=== PATIENT | male | born 2000 | race Caucasian/White ===

== ENCOUNTER 2021-03-02 17:26 | Emergency (ER) | payer BC ==
[~2021-03-02] VITALS: Ht 175.3 cm; Wt 56.8 kg
[2021-03-02 17:32] VITALS: TEMP 97.8
[2021-03-02 18:10] VITALS: BP 128/66; PULSE 72
== END 2021-03-02 18:16 | disposition home or self-care (01) ==
LOC: COL.ER 17:26
DX: N45.1 Epididymitis (principal)

== ENCOUNTER → 2021-03-03 | Outpatient (CLI) | payer BC | LOC: COL.RAD 07:50 | DX: I86.1 Scrotal varices (principal); N43.3 Hydrocele, unspecified ==

== ENCOUNTER 2022-06-13 17:55 | Emergency (ER) | payer BC ==
[~2022-06-13] VITALS: Ht 175.3 cm; Wt 65.5 kg
[2022-06-13 18:01] VITALS: TEMP 98.8
[2022-06-13] MEDS ORDERED: ZOLOFT 50MG50 MG PO (18:05)
[2022-06-13] MEDS ORDERED: DESYREL 50MG50 MG PO (18:05)
[2022-06-13] MEDS ORDERED: LATUDA20 MG PO (18:05)
[2022-06-13 19:24] LABS: BASO # 0.1 K/mm3 (0.0-0.2); BASO % 0.5 % (0.0-2.0); EOS # 0.1 K/mm3 (0.0-0.7); EOS % 1.2 % (0.0-4.0); GRAN # 6.1 K/mm3 (1.4-6.5); GRAN % 64.8 % (42.2-75.2); HEMATOCRIT 44.7 % (36.0-47.0); HEMOGLOBIN 15.3 g/dl (12.5-16.1); LYMPH # 2.1 K/mm3 (1.2-3.4); LYMPH % 21.8 % (20.0-51.0); MEAN CELL VOLUME 83 fl (80.0-95.0); MEAN CORPUSCULAR HEMOGLOBIN 28 pg (26-32); MEAN CORPUSCULAR HGB CONC 34 g/dl (33.0-37.0); MONO # 1.1 K/mm3 (0.1-0.6); MONO % 11.5 % (1.7-9.3); PLATELET COUNT 284 K/mm3 (130-400); RED BLOOD COUNT 5.38 M/mm3 (4.20-5.60); REDCELL DISTRIBUTION WIDTH-CV 12.6 % (11.5-14.5)
[2022-06-13] MEDS ORDERED: VOLTAREN 75 DR75 MG PO (20:10)
[2022-06-13 20:40] VITALS: BP 112/71; PULSE 91
== END 2022-06-13 20:42 | disposition home or self-care (01) ==
LOC: COL.ER 17:55
PROVIDERS: Family Medicine
DX: R07.89 Other chest pain (principal); Z20.822 Contact with and (suspected) exposure to COVID-19
CPT/HCPCS: J1885

== ENCOUNTER 2023-11-14 15:14 | Emergency (ER) | payer BC ==
[~2023-11-14] VITALS: Ht 175.3 cm; Wt 70.5 kg
[~2023-11-14 15:14] MED LIST: DESYREL 50MG50 MG PO; LATUDA20 MG PO; VOLTAREN 75 DR75 MG PO; ZOLOFT 50MG50 MG PO
[2023-11-14 15:24] VITALS: TEMP 98
[2023-11-14] MEDS ORDERED: NS 1,000 ML IV ONE (16:00)
[2023-11-14 16:25] LABS: BASO # 0.1 K/mm3 (0.0-0.2); BASO % 0.5 % (0.0-2.0); EOS # 0.3 K/mm3 (0.0-0.7); EOS % 3.1 % (0.0-4.0); GRAN # 7.1 K/mm3 (1.4-6.5); GRAN % 65.3 % (42.2-75.2); HEMATOCRIT 45.4 % (42.0-52.0); HEMOGLOBIN 15.3 g/dl (13.5-18.0); LYMPH # 2.6 K/mm3 (1.2-3.4); LYMPH % 23.9 % (20.0-51.0); MEAN CELL VOLUME 86 fl (80.0-100.0); MEAN CORPUSCULAR HEMOGLOBIN 29 pg (27-31); MEAN CORPUSCULAR HGB CONC 34 g/dl (33.0-37.0); MEAN PLATELET VOLUME 9.5 fl (7.4-10.4); MONO # 0.7 K/mm3 (0.1-0.6); MONO % 6.6 % (1.7-9.3); PLATELET COUNT 267 K/mm3 (130-400); RED BLOOD COUNT 5.28 M/mm3 (4.20-5.60); REDCELL DISTRIBUTION WIDTH-CV 12.2 % (11.5-14.5)
[2023-11-14 16:33] LABS: INR 1.1 (0.8-3.0); PROTHROMBIN TIME 12.4 SECONDS (9.7-12.8)
[2023-11-14] MEDS ORDERED: NS 50 ML IV SCH (16:38)
[2023-11-14] MEDS ORDERED: Iohexol 300 - 100 ML VIAL IV ONE (16:38)
[2023-11-14 16:51] LABS: ALBUMIN 4.2 g/dL (3.5-5.0); BILIRUBIN,TOTAL 0.8 mg/dL (0.2-1.2); CREATININE, serum 0.86 mg/dL (0.72-1.25); POTASSIUM 4.1 mEq/L (3.5-4.5); TOTAL PROTEIN 7.9 g/dl (6.2-8.1)
[2023-11-14] MEDS ORDERED: PREDNISONE20 MG PO (17:23)
[2023-11-14] MEDS ORDERED: BONINE25 MG PO (17:23)
[2023-11-14 17:29] VITALS: BP 120/69; PULSE 68
[2023-11-14] MEDS ORDERED: predniSONE 20 MG TAB PO ONE (17:30)
[2023-11-14] MEDS ORDERED: Meclizine 25 MG TAB PO ONE (17:30)
== END 2023-11-14 17:43 | disposition home or self-care (01) ==
LOC: COL.ER 15:14
PROVIDERS: Emergency Medicine
DX: H81.91 Unspecified disorder of vestibular function, right ear (principal); F17.210 Nicotine dependence, cigarettes, uncomplicated
CPT/HCPCS: J7030; J7512; Q9967